=== PATIENT | male | born 1955 | race Caucasian/White ===

== ENCOUNTER 2019-02-26 16:26 | Observation (INO) | payer OTHER ==
[~2019-02-26] VITALS: Ht 180.3 cm; Wt 86.2 kg
[2019-02-26] MEDS ORDERED: ASPIRIN 325 MG TAB PO STA (19:38)
[2019-02-26] MEDS ORDERED: NITROGLYCERIN 2% 1 GM OINT PKT TD STA (19:38)
--- NOTE | 2019-02-26 20:04 | ERD ---
ER Documentation Chief Complaint Chief Complaint dizziness and sob x 3 days HPI This is a 63-year-old male has history of hypertension high lipids and type 2 diabetes she says over the past 3 weeks is having worsening symptoms of exe rtional dyspnea. He said when he will walk up stairs or hill he gets very short of breath and extremely dizzy where he nearly passes out. He said is getting worse and happening more frequently and easier. He admits even starting to happen at rest. He said today he had some chest pressure with the symptoms as well. He is currently asymptomatic in the ER ROS All systems reviewed and are negative except as per history of present illness. Medications Home Meds Reported Medications Glimepiride* (Glimepiride*) 2 Mg Tablet, 2 MG PO BID, TAB 02/26/19 Escitalopram Oxalate* (Escitalopram Oxalate*) 20 Mg Tablet, 20 MG PO DAILY, #30 TAB 02/26/19 Simvastatin (Simvastatin) 10 Mg Tablet, 10 MG PO QHS, #30 TAB 02/26/19 Benazepril Hcl* (Benazepril Hcl*) 40 Mg Tablet, 40 MG PO DAILY, #30 TAB 02/26/19 Tamsulosin Hcl* (Flomax*) 0.4 Mg Cap.er.24h, 0.4 MG PO DAILY, CAP 02/26/19 Allergies Allergies: Coded Allergies: No Known Allergy (Unverified , 02/26/19) PMhx/Soc Medical and Surgical Hx: pt denies Surgical Hx History of Surgery: No Anesthesia Reaction: No Hx Neurological Disorder: No Hx Respiratory Disorders: No Hx Cardiac Disorders: Yes (HTN, HYPERLIPIDEMIA) Hx Psychiatric Problems: No Hx Miscellaneous Medical Probl: No Hx Alcohol Use: Yes (SOCIALLY) Hx Substance Use: No Hx Tobacco Use: No Smoking Status: Never smoker FmHx Family History: No coronary disease Physical Exam Vitals Vital Signs Date Temp Pulse Resp B/P (MAP) Pulse Ox O2 O2 Flow FiO2 Time Delivery Rate 02/26/19 66 18 100 Room Air 19:41 02/26/19 98.3 96 18 123/68 97 16:35 (86) Physical Exam Const: Well-developed, well-nourished Head: Atraumatic, normocephalic Eyes: Normal Conjunctiva, PERRLA, EOMI, normal sclera, no nystagmus ENT: Normal External Ears, Nose and Mouth, moist mucus membranes. Neck: Full range of motion. No meningismus, no lymphadenopathy. Resp: Clear to auscultation bilaterally, no wheezing, rhonchi, rales Cardio: Regular rate and rhythm, no murmurs, S1 S2 present Abd: Soft, non tender x 4, non distended. Normal bowel sounds, no guarding or rebound, no pulsitile abdominal masses or bruits Skin: No petechiae or rashes, no ecchymosis , no maculopapular rash Back: No midline or flank tenderness Ext: No cyanosis, or edema, FROM x 4, normal inspection, neurovascularly intact x 4 Neur: Awake and alert, STR 5/5 x 4, sensation intact x 4, no focal findings, cerebellum intact Psych: Normal Mood and Affect Result Diagram: 02/26/19194402/26/191944 Results 24 hrs Laboratory Tests Test 02/26/19 19:45 White Blood Count 7.8 10^3/ul Red Blood Count 4.44 10^6/ul Hemoglobin 13.6 g/dl Hematocrit 42.1 % Mean Corpuscular Volume 94.8 fl Mean Corpuscular Hemoglobin 30.6 pg Mean Corpuscular Hemoglobin Concent 32.3 g/dl Red Cell Distribution Width 11.9 % Platelet Count 254 10^3/UL Mean Platelet Volume 9.5 fl Immature Granulocytes % 0.300 % Neutrophils % 63.6 % Lymphocytes % 25.4 % Monocytes % 7.7 % Eosinophils % 2.4 % Basophils % 0.6 % Nucleated Red Blood Cells % 0.0 /100WBC Immature Granulocytes # 0.020 10^3/ul Neutrophils # 5.0 10^3/ul Lymphocytes # 2.0 10^3/ul Monocytes # 0.6 10^3/ul Eosinophils # 0.2 10^3/ul Basophils # 0.1 10^3/ul Nucleated Red Blood Cells # 0.0 10^3/ul Sodium Level 142 mmol/L Potassium Level 4.1 mmol/L Chloride Level 103 mmol/L Carbon Dioxide Level 27 mmol/L Anion Gap 12 Blood Urea Nitrogen 15 mg/dl Creatinine 0.95 mg/dl Est Glomerular Filtrat Rate mL/min > 60 mL/min Glucose Level 76 mg/dl Calcium Level 9.7 mg/dl Total Bilirubin 0.5 mg/dl Direct Bilirubin 0.00 mg/dl Indirect Bilirubin 0.5 mg/dl Aspartate Amino Transf (AST/SGOT) 21 IU/L Alanine Aminotransferase (ALT/SGPT) 25 IU/L Alkaline Phosphatase 56 IU/L Troponin I < 0.012 ng/ml Total Protein 7.5 g/dl Albumin 4.7 g/dl Globulin 2.80 g/dl Albumin/Globulin Ratio 1.67 Current Medications Medications Dose Sig/Damir Start Time Status Last (Trade) Ordered Route PRN Stop Time Admin Dose Reason Admin Aspirin 325 mg ONCE STAT 02/26/19 DC 02/26/19 (Aspirin) PO 19:38 20:08 02/26/19 19:39 1 inch ONCE STAT 02/26/19 DC 02/26/19 Nitroglycerin TD 19:38 20:08 02/26/19 19:39 (Nitroglyceri n 2% Oint) Procedures/MDM EKG: Rate/Rhythm: Sinus rhythm with PVC QRS, ST, QT: NORMAL DE, QRS, QT] Impression: NORMAL EKG [place] [id number] Radiology Main Line: [phone] DIAGNOSTIC IMAGING REPORT Patient: RACHELL SCHWARTZ : 1955 Age: 63 Sex: M MR #: [id number] DOS: 02/26/191937 Ordering MD: GISELE ALBA DO Location: E/R Room/Bed: PROCEDURE: XR Chest 1 View. CLINICAL INDICATION: Chest pain. TECHNIQUE: Single view of the chest was obtained. COMPARISON: None. FINDINGS: Support lines and tubes: None. Mediastinum: Within normal limits of size. Lungs: Atelectasis versus minimal infiltrates in the perihilar right lower lobe. Mild peribronchial cuffing in the right lower lung. Scattered atelectasis in the remainder of the lungs. No pneumothorax. Hypoinflated lungs. Osseous structures: Intact. Osteopenia. Degenerative changes in the shoulders. Other: None. IMPRESSION: Atelectasis versus minimal infiltrates in the perihilar right lower lobe. Peribronchial cuffing in the right lower lung that could reflect bronchitis. Scattered atelectasis in the remainder of the lungs. Hypoinflated lungs. RPTAT: AA .Ramón Kelley MD, MD Date Time Electronically viewed and signed by .Ramón Kelley MD, MD on 02/26/2019 21:25 .P/ CC: GISELE ALBA DO [phone] Patient has risk factors for cardiovascular disease, he may be having anginal equivalents of dyspnea on exertion with dizziness with no chest pain being a diabetic. We will need to admit him for cardiac work-up Cardiac Admit MDM: Patient's symptoms are concerning for cardiac cause will require inpatient workup and continuous monitoring. Further w/u for ischemia, arrhythmia, PE or dissection will be deferred to the inpatient team. Departure Diagnosis: Primary Impression: Dyspnea Dyspnea type: dyspnea on exertion Qualified Codes: R06.09 - Other forms of dyspnea Additional Impression: Dizziness Condition: Stable (0) GISELE ALBA DO Feb 26, 2019 20:04
[2019-02-26] MEDS ORDERED: ZOC10 PO (20:36)
[2019-02-26] MEDS ORDERED: GLIM2TAB PO (20:36)
[2019-02-26] MEDS ORDERED: BENA40TA56 PO (20:36)
[2019-02-26] MEDS ORDERED: ESCI20TA38 PO (20:36)
[2019-02-26] MEDS ORDERED: TAMS-14 PO (20:36)
[2019-02-26] MEDS ORDERED: NACL 0.9% 3 ML SYG IV SCH (22:30)
[2019-02-26] MEDS ORDERED: DOCUSATE SODIUM 100 MG CAP PO PRN (22:30)
[2019-02-26] MEDS ORDERED: ONDANSETRON 4 MG TAB PO PRN (22:30)
[2019-02-26] MEDS ORDERED: ONDANSETRON 4 MG INJ IV PRN (22:30)
[2019-02-26] MEDS ORDERED: ACETAMINOPHEN 325 MG TAB PO PRN ×2 (22:30)
[2019-02-26] MEDS ORDERED: HYDROCODONE/APAP (5/325) TAB PO PRN (22:30)
[2019-02-26] MEDS: FAMOTIDINE 20 MG TAB PO SCH (23:36)
[2019-02-26] MEDS: ATORVASTATIN 10 MG TAB PO SCH (23:36)
[2019-02-27] VITALS (7 sets, daily range): BP systolic 107–151; BP diastolic 62–84; PULSE 52–80; RESP 18–20; Ht 180.3 cm; Wt 86.2 kg
[2019-02-27] MEDS: ACCU-CHEK XX SCH ×4 (07:48→20:36)
[2019-02-27] MEDS: FAMOTIDINE 20 MG TAB PO SCH ×2 (08:51→20:35)
[2019-02-27] MEDS: ESCITALOPRAM 20 MG TAB PO SCH (08:51)
[2019-02-27] MEDS: GLIMEPIRIDE 2 MG TAB PO SCH ×2 (08:51→20:35)
[2019-02-27] MEDS: TAMSULOSIN (SR) 0.4 MG CAP PO SCH (08:51)
[2019-02-27] MEDS: BENAZEPRIL 40 MG TAB PO SCH (08:52)
[2019-02-27] MEDS ORDERED: ENOXAPARIN 40 MG/0.4 ML SYG SC SCH (09:00)
[2019-02-27] MEDS ORDERED: EMPA10TA PO (09:32)
--- NOTE | 2019-02-27 09:33 | PDOCDIS ---
Discharge Instructions CONDITION [id number] Patient Condition: Buomp7g Good HOME CARE INSTRUCTIONS: [id number] Diet Instructions: Cqeog5m [id number] Activity Restrictions: [id number] No Restrictions FOLLOW UP/APPOINTMENTS Follow-up Plan pcp 1 week GUERDA CHA MD Feb 27, 2019 09:33
[2019-02-27] MEDS ORDERED: GLUCOSE GEL 15 GRAM TUBE BUCCAL PRN (10:00)
[2019-02-27] MEDS ORDERED: GLUCOSE GEL 15 GRAM TUBE PO PRN ×2 (10:00)
[2019-02-27] MEDS ORDERED: GLUCAGON 1 MG INJ IM PRN (10:00)
[2019-02-27] MEDS ORDERED: DEXTROSE 50% 50 ML SYRINGE IV PRN ×2 (10:00)
--- NOTE | 2019-02-27 10:44 | HP ---
DATE OF ADMISSION: 02/26/2019 CHIEF COMPLAINT: Chest pressure and dyspnea on exertion. HISTORY OF PRESENT ILLNESS: A 63-year-old male with history of hypertension and type 2 diabetes arnulfo itus, presented to Emergency Room with complaint of dyspnea on exertion for the last 3 weeks prior to admission. The patient noted that as he was going up the stairs or climbing up a hill, he would bec ome dyspneic. The patient also reports associated dizziness. On the day of admission, he had a brie f episode of chest tightness. No nausea, vomiting, or diaphoresis. This lasted about 5 minutes. The patient had a stress test a few years prior to admission, and there was no evidence of coronary i schemia. Initial evaluation in the Emergency Room was unremarkable. Serial troponins have been nega tive and 12-lead EKG did not show any ST or T-wave changes. PAST MEDICAL HISTORY: 1. Hypertension. 2. Type 2 diabetes mellitus. 3. Hyperlipidemia. 4. Benign prostatic hyperplasia. MEDICATIONS PRIOR TO ADMISSION: 1. Flomax 0.4 mg daily. 2. Benazepril 40 mg daily. 3. Citalopram 20 mg daily. 4. Glimepiride 2 mg b.i.d. SOCIAL HISTORY: Patient lives at home. He denies tobacco use and drinks alcohol on rare social occa sions. PHYSICAL EXAMINATION: GENERAL: Well-developed, well-nourished male who is in no apparent distress. VITAL SIGNS: Blood pressure 118/62, pulse 63, respirations 20, temperature 97.6. HEENT: Extraocular muscles intact. Pupils equal and reactive to light bilaterally. Sclerae are ani cteric. Oropharynx is clear and moist. NECK: Supple, no JVD, no carotid bruits. LUNGS: Clear to auscultation bilaterally. CARDIAC: Regular rate and rhythm. No murmurs, rubs or gallops. ABDOMEN: Soft, nontender, nondistended, normoactive bowel sounds. EXTREMITIES: No clubbing, cyanosis, or edema. NEUROLOGICAL: Nonfocal. LABORATORY DATA: CBC within normal limits. Basic metabolic panel was within normal limits except th e blood sugar of 245. Hemoglobin A1c was elevated at 8.4. Cholesterol was 90, LDL 43, HDL 29. TSH 1.7. Triglyceride 88. Serial troponins have been less than 0.12. ASSESSMENT: 1. A 63-year-old male with unexplained shortness of breath and dyspnea on exertion. The patient bel ieves he had an episode of chest tightness on the day of admission. Acute cardiac injury has been ru led out. 2. Hypertension. 3. Type 2 diabetes mellitus. 4. Hyperlipidemia. However, total cholesterol is low at 90 and LDL is 43. 5. Benign prostatic hyperplasia. PLAN: 1. Place in tele observation with Lexiscan stress test. Resume home medications, had Jardiance for better blood sugar control. Cardiology consultation was requested. 2. Discharge planning if a stress test is normal. Dictated By: GUERDA REYES/NTS Conf#: [id number] DID#: [id number] CC: LISA LEWIS MD;*End*
[2019-02-27] MEDS ORDERED: REGADENOSON 0.4 MG/5 ML SYG ONE (16:16)
--- NOTE | 2019-02-27 18:36 | CONS ---
Assessment/Plan Assessment/Plan Hospital Course (Demo Recall) Shortness of breath Paroxysmal atrial fibrillation Hypertension Diabetes Dyslipidemia Patient with shortness of breath off and on for the past 3 weeks Serial cardiac enzymes are negative, ECG with no significant ischemic abnormalities On telemetry, patient found to have paroxysmal atrial fibrillation. Would start beta-shreyas and titrate as heart rate and blood pressure permits. Given risk factors, on anticoagulation Patient for nuclear cardiac perfusion study today, unfortunately, during vasodilator injection, patient's peripheral IV became infiltrated and study could not be completed. Plan for stress portion to be done in the morning. Consultation Date/Type/Reason Admit Date/Time Feb 26, 2019 at 22:15 Type of Consult Cardiology Reason for Consultation Shortness of breath Date/Time of Note DATE: 02/27/19 TIME: 18:33 Hx of Present Illness This is a 63-year-old male with past medical history of hypertension, diabetes who presents with shortness of breath off and on for the past 3 weeks. At times symptoms are with exertion at times at rest. Denies any chest pain. Does get occasional warm-like sensation. Denies any fevers or chills. 12 point review of systems was performed with all pertinent positives and negatives mentioned above and all else is negative Past Medical History Medical History: diabetes, high cholesterol, hypertension Home Meds Active Scripts Empagliflozin (Jardiance) 10 Mg Tablet, 10 MG PO DAILY for 30 Days, TAB 3 Refills Prov:GUERDA CHA MD 02/27/19 Reported Medications Glimepiride* (Glimepiride*) 2 Mg Tablet, 2 MG PO BID, TAB 02/26/19 Escitalopram Oxalate* (Escitalopram Oxalate*) 20 Mg Tablet, 20 MG PO DAILY, #30 TAB 02/26/19 Simvastatin (Simvastatin) 10 Mg Tablet, 10 MG PO QHS, #30 TAB 02/26/19 Benazepril Hcl* (Benazepril Hcl*) 40 Mg Tablet, 40 MG PO DAILY, #30 TAB 02/26/19 Tamsulosin Hcl* (Flomax*) 0.4 Mg Cap.er.24h, 0.4 MG PO DAILY, CAP 02/26/19 Medications Current Medications Benazepril HCl (Lotensin) 40 mg DAILY PO Last administered on 02/27/19at 08:52; Admin Dose 40 MG; Start 02/27/19 at 09:00 Escitalopram Oxalate (Lexapro) 20 mg DAILY PO Last administered on 02/27/19at 08:51; Admin Dose 20 MG; Start 02/27/19 at 09:00 Glimepiride (Amaryl) 2 mg BID PO Last administered on 02/27/19at 08:51; Admin Dose 2 MG; Start 02/27/19 at 09:00 Tamsulosin HCl (Flomax) 0.4 mg DAILY PO Last administered on 02/27/19at 08:51; Admin Dose 0.4 MG; Start 02/27/19 at 09:00 Atorvastatin Calcium (Lipitor) 5 mg DAILY@21 PO Last administered on 02/26/19at 23:36; Admin Dose 5 MG; Start 02/26/19 at 23:00 Diagnostic Test (Pha) (Accu-Chek) 1 ea AC MEALS AND BEDTIME XX Last administered on 02/27/19at 17:37; Admin Dose 1 EA; Start 02/27/19 at 07:00 IV Flush (NS 3 ml) 3 ml PER PROTOCOL IV ; Start 02/26/19 at 22:30 Ondansetron HCl (Zofran Tab) 4 mg Q6H PRN PO NAUSEA/VOMITING; Start 02/26/19 at 22:30 Acetaminophen (Tylenol Tab) 650 mg Q6H PRN PO .PAIN 1-3 OR TEMP; Start 02/26/19 at 22:30 Acetaminophen/ Hydrocodone Bitart (Timbo (5/325)) 1 tab Q6H PRN PO .PAIN 4-6; Start 02/26/19 at 22:30 Docusate Sodium (Colace) 100 mg Q12H PRN PO .CONSTIPATION; Start 02/26/19 at 22:30 Famotidine (Pepcid) 20 mg Q12 PO Last administered on 02/27/19at 08:51; Admin Dose 20 MG; Start 02/26/19 at 22:30 Empaglifozin (Jardiance) 10 mg DAILY@08 PO ; Start 02/28/19 at 08:00 Miscellaneous Information 1 ea NOTE XX ; Start 02/27/19 at 10:00 Glucose (Glutose) 15 gm Q15M PRN PO DECREASED GLUCOSE; Start 02/27/19 at 10:00 Glucose (Glutose) 22.5 gm Q15M PRN PO DECREASED GLUCOSE; Start 02/27/19 at 10:00 Dextrose (D50w Syringe) 25 ml Q15M PRN IV DECREASED GLUCOSE; Start 02/27/19 at 10:00 Dextrose (D50w Syringe) 50 ml Q15M PRN IV DECREASED GLUCOSE; Start 02/27/19 at 10:00 Glucagon (Glucagen) 1 mg Q15M PRN IM DECREASED GLUCOSE; Start 02/27/19 at 10:00 Glucose (Glutose) 15 gm Q15M PRN BUCCAL DECREASED GLUCOSE; Start 02/27/19 at 10:00 Enoxaparin Sodium (Lovenox) 85 mg Q12 SC ; Start 02/27/19 at 21:00; Status UNV Aspirin (Aspirin) 81 mg DAILY PO ; Start 02/28/19 at 09:00; Status UNV Metoprolol Tartrate (Lopressor) 25 mg BID PO ; Start 02/27/19 at 21:00; Status UNV Allergies: Coded Allergies: No Known Allergy (Unverified , 02/26/19) Family History Significant Family History: heart disease (Father in his 60s) Social History Smoking Status: Never smoker Exam/Review of Systems Vital Signs Vitals Vital Signs Date Temp Pulse Resp B/P (MAP) Pulse Ox O2 O2 Flow FiO2 Time Delivery Rate 02/27/19 98.6 71 20 111/63 98 11:41 (79) 02/27/19 Room Air 01:35 Intake and Output 02/26/19 02/26/19 02/27/19 1515:00 23:00 07:00 IntakeIntake Total 250 ml BalanceBalance 250 ml Exam Constitutional: alert, oriented (No apparent distress) Head: normocephalic Respiratory: clear to auscultation, normal air movement Cardiovascular: regular rate and rhythm (S1-S2 heard) Gastrointestinal: soft, non-tender, bowel sounds Extremities: other (No significant edema) Labs Result Diagram: 02/27/1961302/27/19613 Results 24hrs Laboratory Tests Test 02/26/19 19:45 02/26/19 22:44 02/27/19 06:14 02/27/19 07:15 White Blood Count 7.8 5.7 # Red Blood Count 4.44 L 3.78 L Hemoglobin 13.6 L 11.6 L Hematocrit 42.1 36.2 L Mean Corpuscular 94.8 95.8 Volume Mean Corpuscular 30.6 30.7 Hemoglobin Mean Corpuscular 32.3 32.0 Hemoglobin Concent Red Cell 11.9 12.0 Distribution Width Platelet Count 254 226 Mean Platelet Volume 9.5 10.0 Immature 0.300 0.400 Granulocytes % Neutrophils % 63.6 56.8 Lymphocytes % 25.4 30.3 Monocytes % 7.7 8.5 Eosinophils % 2.4 3.5 Basophils % 0.6 0.5 Nucleated Red Blood 0.0 0.0 Cells % Immature 0.020 0.020 Granulocytes # Neutrophils # 5.0 3.2 Lymphocytes # 2.0 1.7 Monocytes # 0.6 0.5 Eosinophils # 0.2 0.2 Basophils # 0.1 0.0 Nucleated Red Blood 0.0 0.0 Cells # Sodium Level 142 141 Potassium Level 4.1 4.3 Chloride Level 103 105 Carbon Dioxide Level 27 26 Anion Gap 12 10 Blood Urea Nitrogen 15 14 Creatinine 0.95 0.82 Est Glomerular > 60 > 60 Filtrat Rate mL/min Glucose Level 76 245 #H Calcium Level 9.7 8.6 Total Bilirubin 0.5 Direct Bilirubin 0.00 Indirect Bilirubin 0.5 Aspartate Amino 21 Transf (AST/SGOT) Alanine 25 Aminotransferase (AL T/SGPT) Alkaline Phosphatase 56 Troponin I < 0.012 < 0.012 < 0.012 B-Type Natriuretic 64 Peptide Total Protein 7.5 Albumin 4.7 Globulin 2.80 Albumin/Globulin 1.67 Ratio Erythrocyte 24 H Sedimentation Rate D-Dimer 2907.92 H D-Dimer Comment Creatine Kinase 54 49 Creatine Kinase 0.7 0.8 Index Creatinine Kinase MB 0.38 0.39 (Mass) Hemoglobin A1c 8.4 H Triglycerides Level 88 Cholesterol Level 90 L LDL Cholesterol, 43 Calculated HDL Cholesterol 29 L Cholesterol/HDL 3.1 Ratio Thyroid Stimulating 1.710 Hormone (TSH) Bedside Glucose 196 Test 02/27/19 11:45 02/27/19 12:10 02/27/19 17:22 Troponin I < 0.012 Bedside Glucose 152 102 Imaging Imaging ECG sinus rhythm, normal QRS duration, nonspecific ST abnormalities Medications Medications Current Medications Benazepril HCl (Lotensin) 40 mg DAILY PO Last administered on 02/27/19at 08:52; Admin Dose 40 MG; Start 02/27/19 at 09:00 Escitalopram Oxalate (Lexapro) 20 mg DAILY PO Last administered on 02/27/19 08:51; Admin Dose 20 MG; Start 02/27/19 at 09:00 Glimepiride (Amaryl) 2 mg BID PO Last administered on 02/27/19 08:51; Admin Dose 2 MG; Start 02/27/19 at 09:00 Tamsulosin HCl (Flomax) 0.4 mg DAILY PO Last administered on 02/27/19 08:51; Admin Dose 0.4 MG; Start 02/27/19 at 09:00 Atorvastatin Calcium (Lipitor) 5 mg DAILY@21 PO Last administered on 02/26/19at 23:36; Admin Dose 5 MG; Start 02/26/19 at 23:00 Diagnostic Test (Pha) (Accu-Chek) 1 ea AC MEALS AND BEDTIME XX Last administered on 02/27/19at 17:37; Admin Dose 1 EA; Start 02/27/19 at 07:00 IV Flush (NS 3 ml) 3 ml PER PROTOCOL IV ; Start 02/26/19 at 22:30 Ondansetron HCl (Zofran Tab) 4 mg Q6H PRN PO NAUSEA/VOMITING; Start 02/26/19 at 22:30 Acetaminophen (Tylenol Tab) 650 mg Q6H PRN PO .PAIN 1-3 OR TEMP; Start 02/26/19 at 22:30 Acetaminophen/ Hydrocodone Bitart (Timbo (5/325)) 1 tab Q6H PRN PO .PAIN 4-6; Start 02/26/19 at 22:30 Docusate Sodium (Colace) 100 mg Q12H PRN PO .CONSTIPATION; Start 02/26/19 at 22:30 Famotidine (Pepcid) 20 mg Q12 PO Last administered on 02/27/19at 08:51; Admin Dose 20 MG; Start 02/26/19 at 22:30 Empaglifozin (Jardiance) 10 mg DAILY@08 PO ; Start 02/28/19 at 08:00 Miscellaneous Information 1 ea NOTE XX ; Start 02/27/19 at 10:00 Glucose (Glutose) 15 gm Q15M PRN PO DECREASED GLUCOSE; Start 02/27/19 at 10:00 Glucose (Glutose) 22.5 gm Q15M PRN PO DECREASED GLUCOSE; Start 02/27/19 at 10:00 Dextrose (D50w Syringe) 25 ml Q15M PRN IV DECREASED GLUCOSE; Start 02/27/19 at 10:00 Dextrose (D50w Syringe) 50 ml Q15M PRN IV DECREASED GLUCOSE; Start 02/27/19 at 10:00 Glucagon (Glucagen) 1 mg Q15M PRN IM DECREASED GLUCOSE; Start 02/27/19 at 10:00 Glucose (Glutose) 15 gm Q15M PRN BUCCAL DECREASED GLUCOSE; Start 02/27/19 at 10:00 Enoxaparin Sodium (Lovenox) 85 mg Q12 SC ; Start 02/27/19 at 21:00; Status UNV Aspirin (Aspirin) 81 mg DAILY PO ; Start 02/28/19 at 09:00; Status UNV Metoprolol Tartrate (Lopressor) 25 mg BID PO ; Start 02/27/19 at 21:00; Status UNV Anderson Rivers DO Feb 27, 2019 18:36
--- NOTE | 2019-02-27 19:06 | RADRPT ---
Echocardiogram Report Patient Name: RACHELL SCHWARTZBPatient ID: [id number] : 1955 (63y 6m)Study Date: 02/27/2019 7:33:37 AM Gender: MAccession #: [id number] Tech: CT Location: [facility] Ref.Physician: LISA LEWIS Height(Cm): BSA: Weight(Kg): Quality: GoodOrder Physician: LISA LEWIS Account #: Procedures: Echocardiographic Report: Transthoracic echocardiogram with complete 2D, M-Mode, and doppler examination. Indications: Chest Pain. Measurements: 2D/M Mode Doppler Measurement Value Normal Range Measurement Value Normal Range LVIDd 2D 4.8 [ 4.2 - 5.8 ] cm AV Peak Mandeep 0.8 [ 100.0 - 170.0 ] cm/sec LVIDs 2D 3.3 [ 2.5 - 4.0 ] cm AV Peak PG 3.0 [ 2.0 - 9.0 ] mmHg LVPWd 2D 1.0 [ 0.6 - 1.0 ] cm LVOT Peak Mandeep 0.7 [ 70.0 - 110.0 ] cm/sec IVSd 2D 1.1 [ 0.6 - 1.0 ] cm LVOT Peak PG 2.0 [ 2.0 - 6.0 ] mmHg AoR Diam 2D 3.6 [ 2.6 - 3.4 ] cm MV E Peak Mandeep 0.5 [ 60.0 - 130.0 ] cm/sec EDV 2D 107.0 [ 62.0 - 150.0 ] ml MV A Peak Mandeep 0.7 [ 100.0 - 120.0 ] cm/sec ESV 2D 45.1 [ 21.0 - 61.0 ] ml MV E/A 0.8 [ 0.8 - 1.5 ] ratio EF 2D 57.9 [ 52.0 - 72.0 ] percent MV Decel Time 264 [ 104 - 258 ] msec LA Dimen 2D 3.5 [ 3.0 - 4.0 ] cm MV E/A 0.8 [ 0.8 - 1.5 ] ratio TR Peak Mandeep 2.3 [ 100.0 - 280.0 ] cm/sec TR Peak PG 22.0 mmHg RVSP 25.0 [ 10.0 - 36.0 ] mmHg RA Pressure 3.0 mmHg Findings: Left Ventricle: Normal left ventricular systolic function. Normal left ventricular cavity size. Normal left ventricular wall thickness. Ejection fraction is visually estimated at 60-65 %. Tissue Doppler/Mitral Doppler indices are consistent with impaired relaxation (Stage I diastolic dysfunction). Right Ventricle: Normal right ventricular size. Normal right ventricular systolic function. Left Atrium: The left atrium is normal in size. Right Atrium: The right atrium is normal in size. Mitral Valve: Mitral valve leaflets appear mildly thickened. Mild mitral annular calcification. Trace mitral regurgitation. Aortic Valve: Normal appearance of the aortic valve. No significant aortic stenosis or insufficiency. Tricuspid Valve: Normal appearance and function of the tricuspid valve with trace physiologic regurgitation. Pulmonic Valve: Normal pulmonic valve appearance. Pericardium: Normal pericardium with no significant pericardial effusion. Aorta: Normal aortic root. IVC: Normal size and normal respiratory collapse consistent with normal right atrial pressure. Conclusions: Normal left ventricular systolic function. Normal left ventricular cavity size. Normal left ventricular wall thickness. Ejection fraction is visually estimated at 60-65 %. Tissue Doppler/Mitral Doppler indices are consistent with impaired relaxation (Stage I diastolic dysfunction). Normal right ventricular size. Normal right ventricular systolic function. The left atrium is normal in size. The right atrium is normal in size. No significant valvular stenosis or regurgitation seen. Normal pericardium with no significant pericardial effusion. Electronically Signed By: Anderson Rivers 2019-02-27 19:05:41 PDT
[2019-02-27] MEDS: ATORVASTATIN 10 MG TAB PO SCH (20:23)
[2019-02-27] MEDS: METOPROLOL 25 MG TAB PO SCH (20:36)
[2019-02-27] MEDS: ENOXAPARIN 100 MG/ML SYG SC SCH (20:59)
[2019-02-28 00:35] VITALS: BP 124/72; PULSE 74; RESP 18
[2019-02-28 04:12] VITALS: BP 130/72; PULSE 85; RESP 18
[2019-02-28 07:31] VITALS: BP 118/73; PULSE 62; RESP 19
[2019-02-28] MEDS ORDERED: EMPAGLIFLOZIN 10 MG TABLET PO SCH (08:00)
[2019-02-28] MEDS: ACCU-CHEK XX SCH ×2 (08:15→11:20)
[2019-02-28] MEDS: TAMSULOSIN (SR) 0.4 MG CAP PO SCH (08:17)
[2019-02-28] MEDS: BENAZEPRIL 40 MG TAB PO SCH (08:18)
[2019-02-28] MEDS: METOPROLOL 25 MG TAB PO SCH (08:18)
[2019-02-28] MEDS: GLIMEPIRIDE 2 MG TAB PO SCH (08:19)
[2019-02-28] MEDS: FAMOTIDINE 20 MG TAB PO SCH (08:19)
[2019-02-28] MEDS: ESCITALOPRAM 20 MG TAB PO SCH (08:19)
[2019-02-28] MEDS: ENOXAPARIN 100 MG/ML SYG SC SCH (08:20)
[2019-02-28] MEDS ORDERED: ASPIRIN 81 MG TAB PO SCH (09:00)
[2019-02-28] MEDS ORDERED: METO-448 PO (09:55)
[2019-02-28] MEDS ORDERED: EMPA10TA PO (09:55)
[2019-02-28] MEDS ORDERED: APIX2.5T PO (09:55)
--- NOTE | 2019-02-28 09:59 | PN ---
Date/Time of Note Date/Time of Note DATE: 02/28/19 TIME: 09:57 Subjective Doing well. No new complaints. Objective Vitals Vital Signs Date Temp Pulse Resp B/P (MAP) Pulse Ox O2 O2 Flow FiO2 Time Delivery Rate 02/28/19 98.0 62 19 118/73 97 Room Air 07:31 (88) Intake and Output 02/27/19 02/27/19 02/28/19 1515:00 23:00 07:00 IntakeIntake Total 650 ml 300 ml BalanceBalance 650 ml 300 ml Clear to auscultation bilaterally Regular rate and rhythm Soft nontender nondistended normoactive bowel sounds No edema Nonfocal Results Result Diagram: 02/27/1961302/27/19613 Medications Medications Current Medications Escitalopram Oxalate (Lexapro) 20 mg DAILY PO Last administered on 02/28/19 08:19; Admin Dose 20 MG; Start 02/27/19 at 09:00 Glimepiride (Amaryl) 2 mg BID PO Last administered on 02/27/19 20:35; Admin Dose 2 MG; Start 02/27/19 at 09:00 Tamsulosin HCl (Flomax) 0.4 mg DAILY PO Last administered on 02/28/19 08:17; Admin Dose 0.4 MG; Start 02/27/19 at 09:00 Atorvastatin Calcium (Lipitor) 5 mg DAILY@21 PO Last administered on 02/27/19 20:23; Admin Dose 5 MG; Start 02/26/19 at 23:00 Diagnostic Test (Pha) (Accu-Chek) 1 ea AC MEALS AND BEDTIME XX Last administe red on 02/28/19at 08:15; Admin Dose 1 EA; Start 02/27/19 at 07:00 IV Flush (NS 3 ml) 3 ml PER PROTOCOL IV ; Start 02/26/19 at 22:30 Ondansetron HCl (Zofran Tab) 4 mg Q6H PRN PO NAUSEA/VOMITING; Start 02/26/19 at 22:30 Acetaminophen (Tylenol Tab) 650 mg Q6H PRN PO .PAIN 1-3 OR TEMP; Start 02/26/19 at 22:30 Acetaminophen/ Hydrocodone Bitart ([place] (5/325)) 1 tab Q6H PRN PO .PAIN 4-6; Start 02/26/19 at 22:30 Docusate Sodium (Colace) 100 mg Q12H PRN PO .CONSTIPATION; Start 02/26/19 at 22:30 Famotidine (Pepcid) 20 mg Q12 PO Last administered on 02/28/19at 08:19; Admin Dose 20 MG; Start 02/26/19 at 22:30 Empaglifozin (Jardiance) 10 mg DAILY@08 PO Last administered on 02/28/19at 08:18; Admin Dose 10 MG; Start 02/28/19 at 08:00 Miscellaneous Information 1 ea NOTE XX ; Start 02/27/19 at 10:00 Glucose (Glutose) 15 gm Q15M PRN PO DECREASED GLUCOSE; Start 02/27/19 at 10:00 Glucose (Glutose) 22.5 gm Q15M PRN PO DECREASED GLUCOSE; Start 02/27/19 at 10:00 Dextrose (D50w Syringe) 25 ml Q15M PRN IV DECREASED GLUCOSE; Start 02/27/19 at 10:00 Dextrose (D50w Syringe) 50 ml Q15M PRN IV DECREASED GLUCOSE; Start 02/27/19 at 10:00 Glucagon (Glucagen) 1 mg Q15M PRN IM DECREASED GLUCOSE; Start 02/27/19 at 10:00 Glucose (Glutose) 15 gm Q15M PRN BUCCAL DECREASED GLUCOSE; Start 02/27/19 at 10:00 Enoxaparin Sodium (Lovenox) 85 mg Q12 SC Last administered on 02/28/19at 08:20; Admin Dose 85 MG; Start 02/27/19 at 21:00 Aspirin (Aspirin) 81 mg DAILY PO Last administered on 02/28/19at 08:19; Admin Dose 81 MG; Start 02/28/19 at 09:00 Metoprolol Tartrate (Lopressor) 25 mg BID PO Last administered on 02/28/19at 08:18; Admin Dose 25 MG; Start 02/27/19 at 21:00 Benazepril HCl (Lotensin) 20 mg DAILY PO ; Start 03/01/19 at 09:00; Status UNV VTE Prophylaxis Risk score (from Nsg)>0 risk: 2 SCD applied (from Ns): No SCD contraindication: other Pharmacological prophylaxis: LMWH Lines/Catheters IV Catheter Type: Saline Lock St[place] in Place: No Assessment/Plan Assessment/Plan 63-year-old male with dyspnea on exertion Acute chest pain Paroxysmal atrial fibrillation Hypertension Type 2 diabetes mellitus Proceed with Lexiscan stress test Continue Lopressor Eliquis 5 mg twice daily upon discharge Cardiology follow-up Discharge planning GUERDA CHA MD Feb 28, 2019 09:59
[2019-02-28] MEDS ORDERED: REGADENOSON 0.4 MG/5 ML SYG ONE (10:46)
--- NOTE | 2019-02-28 12:57 | CONS ---
Assessment/Plan Assessment/Plan Hospital Course (Demo Recall) Shortness of breath Paroxysmal atrial fibrillation Preserved left ventricular ejection fraction Normal nuclear cardiac perfusion study 02/28/2019 Hypertension Diabetes Dyslipidemia Nuclear study performed today with no evidence of ischemia or infarct Telemetry reviewed remains in sinus rhythm DC Lovenox, start Eliquis 5 mg p.o. twice daily, request case management to confirm insurance approval prior to discharge DC aspirin Continue Lopressor Discussed with patient benefits and risks of anticoagulation and agrees DC planning Consultation Date/Type/Reason Admit Date/Time Feb 26, 2019 at 22:15 Initial Consult Date Type of Consult Cardiology Date/Time of Note DATE: 02/28/19 TIME: 12:55 24 HR Interval Summary Free Text/Dictation No chest pain, palpitations, shortness of breath Exam/Review of Systems Vital Signs Vitals Vital Signs Date Temp Pulse Resp B/P (MAP) Pulse Ox O2 O2 Flow FiO2 Time Delivery Rate 02/28/19 98.0 62 19 118/73 97 Room Air 07:31 (88) Intake and Output 02/27/19 02/27/19 02/28/19 1515:00 23:00 07:00 IntakeIntake Total 650 ml 300 ml BalanceBalance 650 ml 300 ml Exam Constitutional: alert, oriented (No apparent distress) Head: normocephalic Respiratory: other (Coarse breath sounds bilaterally, no wheezing) Cardiovascular: regular rate and rhythm (S1-S2 heard) Gastrointestinal: soft, non-tender, bowel sounds Extremities: other (No edema) Labs Result Diagram: 02/27/19 0614 02/27/19 0614 Results 24hrs Laboratory Tests Test 02/27/19 17:22 02/27/19 20:32 02/28/19 01:29 02/28/19 08:15 Bedside Glucose 102 197 116 120 Test 02/28/19 12:46 Bedside Glucose 179 Medications Medications Current Medications Escitalopram Oxalate (Lexapro) 20 mg DAILY PO Last administered on 02/28/19at 08:19; Admin Dose 20 MG; Start 02/27/19 at 09:00 Glimepiride (Amaryl) 2 mg BID PO Last administered on 02/27/19at 20:35; Admin Dose 2 MG; Start 02/27/19 at 09:00 Tamsulosin HCl (Flomax) 0.4 mg DAILY PO Last administered on 02/28/19at 08:17; Admin Dose 0.4 MG; Start 02/27/19 at 09:00 Atorvastatin Calcium (Lipitor) 5 mg DAILY@21 PO Last administered on 02/27/19at 20:23; Admin Dose 5 MG; Start 02/26/19 at 23:00 Diagnostic Test (Pha) (Accu-Chek) 1 ea AC MEALS AND BEDTIME XX Last administered on 02/28/19at 08:15; Admin Dose 1 EA; Start 02/27/19 at 07:00 IV Flush (NS 3 ml) 3 ml PER PROTOCOL IV ; Start 02/26/19 at 22:30 Ondansetron HCl (Zofran Tab) 4 mg Q6H PRN PO NAUSEA/VOMITING; Start 02/26/19 at 22:30 Acetaminophen (Tylenol Tab) 650 mg Q6H PRN PO .PAIN 1-3 OR TEMP; Start 02/26/19 at 22:30 Acetaminophen/ Hydrocodone Bitart ([place] (5/325)) 1 tab Q6H PRN PO .PAIN 4-6; Start 02/26/19 at 22:30 Docusate Sodium (Colace) 100 mg Q12H PRN PO .CONSTIPATION; Start 02/26/19 at 22:30 Famotidine (Pepcid) 20 mg Q12 PO Last administered on 02/28/19at 08:19; Admin D ose 20 MG; Start 02/26/19 at 22:30 Empaglifozin (Jardiance) 10 mg DAILY@08 PO Last administered on 02/28/19at 08:18; Admin Dose 10 MG; Start 02/28/19 at 08:00 Miscellaneous Information 1 ea NOTE XX ; Start 02/27/19 at 10:00 Glucose (Glutose) 15 gm Q15M PRN PO DECREASED GLUCOSE; Start 02/27/19 at 10:00 Glucose (Glutose) 22.5 gm Q15M PRN PO DECREASED GLUCOSE; Start 02/27/19 at 10:00 Dextrose (D50w Syringe) 25 ml Q15M PRN IV DECREASED GLUCOSE; Start 02/27/19 at 10:00 Dextrose (D50w Syringe) 50 ml Q15M PRN IV DECREASED GLUCOSE; Start 02/27/19 at 10:00 Glucagon (Glucagen) 1 mg Q15M PRN IM DECREASED GLUCOSE; Start 02/27/19 at 10:00 Glucose (Glutose) 15 gm Q15M PRN BUCCAL DECREASED GLUCOSE; Start 02/27/19 at 10:00 Enoxaparin Sodium (Lovenox) 85 mg Q12 SC Last administered on 02/28/19at 08:20; Admin Dose 85 MG; Start 02/27/19 at 21:00 Aspirin (Aspirin) 81 mg DAILY PO Last administered on 02/28/19at 08:19; Admin Dose 81 MG; Start 02/28/19 at 09:00 Metoprolol Tartrate (Lopressor) 25 mg BID PO Last administered on 02/28/19at 08:18; Admin Dose 25 MG; Start 02/27/19 at 21:00 Benazepril HCl (Lotensin) 20 mg DAILY PO ; Start 03/01/19 at 09:00 Anderson Rivers DO Feb 28, 2019 12:57
[2019-02-28 13:57] VITALS: BP 106/63; PULSE 68; RESP 18
[2019-02-28 15:22] VITALS: BP 114/65; PULSE 79; RESP 18
[2019-02-28] MEDS ORDERED: APIXABAN 5 MG TABLET PO SCH (21:00)
[2019-03-01] MEDS ORDERED: BENAZEPRIL 20 MG TAB PO SCH (09:00)
--- NOTE | 2019-03-03 02:44 | DS ---
DATE OF ADMISSION: 02/26/2019 DATE OF DISCHARGE: 02/28/2019 HOSPITAL COURSE: 1. A 63-year-old male with paroxysmal atrial fibrillation. 2. Atypical chest pain with normal Lexiscan stress test. 3. Hypertension. 4. Type 2 diabetes mellitus. HOSPITAL COURSE: A 63-year-old male with a history of hypertension and type 2 diabetes mellitus, pre sented to emergency room with complaint of occasional dyspnea on exertion and 1 episode of chest disc omfort. The patient was noted to have paroxysmal atrial fibrillation during the hospitalization. In itially started him on Lovenox. He was seen in consultation by Dr. Rivers. A Lexiscan stress test that did not show any evidence of stress-induced ischemia. There were no wall motion abnormalities. Ejection fraction was 59% at stress. Dr. Rivers recommended Eliquis as well as metoprolol. The patient was discharged home in a stable condition. His atrial fibrillation remai sheeba rate controlled during the hospitalization. MEDICATIONS ON DISCHARGE: 1. Eliquis 5 mg p.o. b.i.d. 2. Jardiance 10 mg p.o. b.i.d. 3. Metoprolol 25 mg p.o. b.i.d. 4. Benazepril 40 mg daily. 5. Citalopram 20 mg daily. 6. Glimepiride 2 mg b.i.d. 7. Simvastatin 10 mg at bedtime. 8. Flomax 0.4 mg daily. 9. The patient also reported taking metformin as an outpatient. DISCHARGE FOLLOWUP: He will be referred to PCP, cardiology, and endocrinology as outpatient. Dictated By: GUERDA REYES/KIRK Conf#: [id number] DID#: [id number] CC: LISA LEWIS MD;*EndCC*
== END 2019-02-28 16:51 | disposition home or self-care (01) ==
LOC: E/R 16:26 → TEL 22:15
PROVIDERS: ADMIT Internal Medicine; ATTEND Internal Medicine
DX: R06.09 Other forms of dyspnea (principal); E11.9 Type 2 diabetes mellitus without complications; E78.5 Hyperlipidemia, unspecified; I10 Essential (primary) hypertension; I48.0 Paroxysmal atrial fibrillation; Z79.84 Long term (current) use of oral hypoglycemic drugs; Z79.82 Long term (current) use of aspirin; N40.0 Benign prostatic hyperplasia without lower urinary tract symptoms
CPT/HCPCS: 71045; 78452; 80048; 80053; 80061; 82550; 82553; 82962; 83036; 83880; 84443; 84484; 85025; 85378; 85651; 93005; 93017; 93306; A9500; A9505; J1650; J2785; Z7500; Z7610; 36415; G0378